=== PATIENT | female | born 1990 | race Caucasian/White ===

== ENCOUNTER 2017-10-24 06:44 | Day surgery (SDC) | payer MEDICAID ==
[2017-10-21 12:50] LABS: BASOPHILS 0.1 % (0-2); EOSINOPHILS 2.7 % (0-7); HEMATOCRIT 41.7 % (36.0-48.0); HEMOGLOBIN 13.9 g/dL (12-16); IMMATURE GRANULOCYTES 0.3 % (0-5); LYMPHOCYTES 36.6 % (15-50); MCH 28.7 pg (26.0-34.0); MCHC 33.3 g/dL (31.0-37.0); MEAN PLATELET VOLUME 9.5 fL (7.4-10.4); MONOCYTES 6.1 % (2-11); NEUTROPHILS 54.2 % (40-80); PLATELET COUNT 258 10x3/uL (130-400); RBC 4.85 10x6/uL (4.00-5.40); RDW 14.9 % (11.5-14.5); WBC 9.7 10x3/uL (4.8-10.8)
[~2017-10-24] VITALS: Ht 157.5 cm; Wt 141.1 kg
--- NOTE | ~2017-10-24 | OP ---
PATIENT NAME: PEYTON MCDOWELL MEDICAL RECORD: [id number] :86 LOCATION:D.OPS ADMISSION DATE: SURGEON: NATIVIDAD ANDRADE MD DATE OF OPERATION: 10/24/2017 PREOPERATIVE DIAGNOSES: 1. Morbid obesity. 2. Pelvic mass. POSTOPERATIVE DIAGNOSES: 1. Morbid obesity. 2. Pelvic mass. PROCEDURES: 1. Diagnostic laparoscopy. 2. Partial salpingectomy with removal of a separate solid mass contained within the tube. SURGEON: Natividad Andrade MD PARTY CHIEF: Mr. Forte. ANESTHESIOLOGIST: Dr. Miller. ANESTHETIC: General with endotracheal intubation. FINDINGS: A 9-cm mass appearing to arise from the left ovary and tube. There is a separate 2-3 cm solid appearing mass medial to this attached to the tube, possibly representing a chronic ectopic. SPECIMENS REMOVED: Portions of tube, ovary, and separate mass. DISPOSITION: Pathology. ESTIMATED BLOOD LOSS: Less than or equal to 100 mL. FLUIDS: 1000 cc of lactated Ringer's. URINE OUTPUT: Quantity sufficient voided prior to the procedure. COMPLICATIONS: None. DRAIN: None. INDICATIONS: The patient is a 27-year-old female with a missed is seen in the clinic and found to have a large cyst. The patient was followed conservatively and with increasing size in the cyst, she is consented for diagnostic laparoscopy and any indicated procedure. DESCRIPTION OF PROCEDURE: After informed consent was assured, the patient was taken to the operating room, anesthetic is obtained. An incision was made at the umbilicus after the patient was prepped and draped. A 5-mm port was placed here and the pneumoperitoneum has developed. The patient is placed in Trendelenburg, although this is limited by her body habitus. Incision is now made in the right lower quadrant and a 5-mm port was placed 2 fingerbreadths OPERATIVE REPORT [id number] PEYTON MCDOWELL midline to the anterior superior iliac spine. A 10-mm port was placed above the symphysis in the midline. Blunt probe was used to sweep the bowel and omentum out of the way and the cyst was easily seen. The cyst is incised with a Bovie cautery hook with a setting at 20 mccormack. Once this was opened and suction is placed inside the cyst cavity and the contents drained. The contents have a straw-colored and green tinge to the fluid. After this was removed, the Gyrus was used to serially compress, coagulate, and separate this tissue. After completion of dissection of the large mass from the adnexa, it appears to arise from the left tube. The solid mass is seen medially attached to the tube and it is removed again with the Gyrus. The pelvis is irrigated and irrigant removed. Interceed is now placed over the operative field. Those specimens were placed within an Endobag and initially the first bag ruptures in trying to remove the solid mass as a separate entity. Decision was made to place both tubal masses into an Endopouch and remove it. The pouch was brought up to the incision and then using retractors and scissors, the incision is extended and the mass is removed. Fascia was now closed with Vicryl stitch in a running fashion and the subcutaneous stitch was used to reapproximate the 3-4 cm of fat pad. Subcuticular stitch was applied. Pelvis is again visualized and adequate hemostasis appears to have been achieved. The ports were removed after removal of the pneumoperitoneum and the skin reapproximated with stitches. Marcaine was injected in all incision sites. The patient was taken to recovery room in stable condition. TRANSINT:[id number] Voice Confirmation ID: [id number] DOCUMENT ID: [id number] NATIVIDAD ANDRADE MD at 0808 CC: [id number] DICTATION DATE: 10/24/17 1040 [facility] NURSE: 10/24/17 1221 [facility] 10/24/17 [id number] [place] [address]
[~2017-10-24 06:44] MED LIST: PROVENTIL HFA6.7 GM INH; TYLENOL W/CODEI1 TAB PO; ULTRAM50 MG PO
[2017-10-24 08:42] VITALS: BP 132/72; Ht 157.5 cm; Wt 141.1 kg
[2017-10-24 08:54] LABS: HCG URINE NEGATIVE (NEGATIVE)
== END 2017-10-24 12:50 | disposition home or self-care (01) ==
LOC: D.OPS 06:44 → EDBD 10:15 → D.PAN 10:15 → D.OPS 12:50
PROVIDERS: Obstetrics & Gynecology
DX: O00.102 Left tubal pregnancy without intrauterine pregnancy (principal); D39.12 Neoplasm of uncertain behavior of left ovary; E66.01 Morbid (severe) obesity due to excess calories; Z68.43 Body mass index [BMI] 50.0-59.9, adult; Z01.812 Encounter for preprocedural laboratory examination